=== PATIENT | female | born 1955 | race Caucasian/White ===

== ENCOUNTER 2016-04-08 12:04 | Inpatient (IN) | payer OTHER ==
[~2016-04-08] VITALS: Ht 165.1 cm; Wt 101.4 kg
[~2016-04-08 12:04] MED LIST: BUPR-93 PO; CYAN500 PO; DICL2100G TP; FLUT16H NASAL; FOLI1 PO; LEVO125 PO; ONDA4 PO; PANT40TA25 PO; RIFAX550 PO; THIA100 PO; VITAD50000 PO
[2016-04-08 12:21] LABS: GLUCOSE,POINT OF CARE 134 MG/DL (70-110)
[2016-04-08 12:54] LABS: BASOPHILS # (AUTO) 0.01 K/uL (0.00-0.20); BASOPHILS % (AUTO) 0.1 % (0.0-2.0); EOSINOPHILS # (AUTO) 0.19 K/uL (0.00-0.70); EOSINOPHILS % (AUTO) 1.86 % (1.0-6.0); HEMATOCRIT 32.3 % (36-46); LYMPHOCYTES # (AUTO) 1.2 K/uL (1.0-4.8); LYMPHOCYTES % (AUTO) 12.2 % (22.0-44.0); MEAN CORPUSCULAR HEMOGLOBIN 36.9 pg (26.0-34.0); MEAN CORPUSCULAR HGB CONC 33.9 G/dL (31.0-37.0); MEAN CORPUSCULAR VOLUME 109 fL (80-100); MONOCYTES # (AUTO) 1.4 K/uL (0.1-1.0); MONOCYTES % (AUTO) 13.8 % (2.0-9.0); NEUTROPHILS # (AUTO) 7.2 K/uL (1.8-7.7); RED BLOOD CELL COUNT(AUTO) 2.98 MIL/uL (4.00-5.20); RED CELL DISTRIBUTION WIDTH 17.9 % (11.5-14.5); WHITE BLOOD COUNT (AUTO) 10.1 K/uL (4.5-11.0)
[2016-04-08 12:58] LABS: CALCIUM, TOTAL 7.9 mg/dL (8.8-10.5); CREATININE 1.05 mg/dL (0.60-1.30); POTASSIUM 3.1 mmol/L (3.5-5.1)
[2016-04-08] MEDS ORDERED: HYDROmorphone 2 MG/ML SYRINGE IVP ONE (13:00)
[2016-04-08] MEDS ORDERED: ONDANSETRON HCL 4 MG/2 ML VIAL IVP ONE (13:00)
[2016-04-08 13:02] LABS: PLATELET COUNT (AUTO) 97 K/uL (150-450)
[2016-04-08 13:03] LABS: ALBUMIN 1.7 g/dL (3.4-5.0); BILIRUBIN,TOTAL 6.2 mg/dL (0.1-1.0); RBC MORPHOLOGY COMMENT ABNORMAL RBC MORPH; TOTAL PROTEIN, SERUM 6.7 g/dL (6.4-8.2)
[2016-04-08 13:06] LABS: INR 1.6 (0.9-1.1); PROTHROMBIN TIME 16.4 SEC (9.4-11.6)
[2016-04-08 14:23] LABS: APPEARANCE,URINE CLEAR (CLEAR); GLUCOSE, URINE (UA) NEGATIVE (NEGATIVE); KETONES,URINE NEGATIVE (NEGATIVE); LEUKOCYTE ESTERASE ,URINE NEGATIVE (NEGATIVE); OCCULT BLOOD,URINE NEGATIVE (NEGATIVE); PH,URINE 6.5 (5.0-8.0); PROTEIN,URINE NEGATIVE (NEGATIVE)
[2016-04-08 14:24] LABS: ADD UA MICROSCOPIC NO
[2016-04-08] MEDS ORDERED: BISACODYL 10 MG RECTAL RECTAL SUPPOSITORY PR PRN (15:15)
[2016-04-08] MEDS ORDERED: ZOLPIDEM TARTRATE 5 MG TABLET PO PRN (15:15)
[2016-04-08] MEDS ORDERED: MAGNESIUM HYDROXIDE SUSPENSION 30 ML UDCUP PO PRN (15:15)
[2016-04-08] MEDS ORDERED: ONDANSETRON HCL 4 MG/2 ML VIAL IVP PRN (15:15)
[2016-04-08] MEDS ORDERED: ACETAMINOPHEN 325 MG TABLET PO PRN (15:15)
[2016-04-08] MEDS: HEPARIN SODIUM,PORCINE 5,000 UNITS/ML VIAL SQ SCH (15:21)
[2016-04-08] MEDS ORDERED: BARIUM SULFATE 0.1% SUSPENSION 450 ML BOTTLE PO ONE (16:30)
[2016-04-08] MEDS ORDERED: SODIUM CHLORIDE 0.9% 100 ML ONE (17:56)
[2016-04-08] MEDS ORDERED: IOVERSOL 350 MG/ML 50 ML VIAL ONE (17:56)
[2016-04-08] MEDS ORDERED: IOVERSOL 350 MG/ML 100 ML VIAL ONE (17:56)
[2016-04-08 19:06] VITALS: BP 157/90
[2016-04-08 19:23] VITALS: BP 136/79
[2016-04-08] MEDS: BuPROPion HCL XL 150 MG ER TABLET PO SCH (19:32)
[2016-04-08] MEDS: RIFAXIMIN 550 MG TABLET PO SCH (19:32)
[2016-04-08] MEDS: OxyCODONE HCL/ACETAMINOPHEN 5-325 MG TABLET PO PRN (19:32)
[2016-04-08 23:23] VITALS: BP 146/78
[2016-04-09] MEDS: HEPARIN SODIUM,PORCINE 5,000 UNITS/ML VIAL SQ SCH ×4 (00:21→23:09)
[2016-04-09] MEDS: OxyCODONE HCL/ACETAMINOPHEN 5-325 MG TABLET PO PRN ×2 (00:21→08:51)
[2016-04-09 04:48] VITALS: BP 140/66
[2016-04-09] MEDS: LEVOTHYROXINE SODIUM 125 MCG TABLET PO SCH (05:51)
[2016-04-09 07:48] VITALS: BP 140/65
[2016-04-09] MEDS: RIFAXIMIN 550 MG TABLET PO SCH ×2 (08:50→20:37)
[2016-04-09] MEDS: PANTOPRAZOLE SODIUM 40 MG DR TABLET PO SCH (08:51)
[2016-04-09] MEDS: BuPROPion HCL XL 150 MG ER TABLET PO SCH ×2 (08:51→20:37)
[2016-04-09 11:15] VITALS: BP 132/76
[2016-04-09 16:10] VITALS: BP 139/69
[2016-04-09 19:14] VITALS: BP 130/72
[2016-04-09] MEDS ORDERED: POTASSIUM CHLORIDE 20 MEQ ER TABLET PO ONE (20:00)
[2016-04-09] MEDS: FUROSEMIDE 40 MG/4 ML VIAL IVP SCH (20:37)
[2016-04-09] MEDS ORDERED: MAG HYDROX/AL HYDROX/SIMETH ES 30 ML SUSPENSION UDCUP PO PRN (21:45)
[2016-04-09] MEDS: MORPHINE SULFATE 2 MG/ML SYRINGE IVP PRN (22:18)
[2016-04-09 23:50] VITALS: BP 135/72
[2016-04-10 04:21] VITALS: BP 128/68
[2016-04-10] MEDS: LEVOTHYROXINE SODIUM 125 MCG TABLET PO SCH (06:08)
[2016-04-10 06:55] LABS: BASOPHILS % (AUTO) 0.4 % (0.0-2.0); EOSINOPHILS % (AUTO) 1.2 % (1.0-6.0); HEMATOCRIT 31.2 % (36-46); HEMOGLOBIN 10.2 g/dL (12.0-16.0); LYMPHOCYTES # (AUTO) 1.2 K/uL (1.0-4.8); LYMPHOCYTES % (AUTO) 12.6 % (22.0-44.0); MEAN CORPUSCULAR HEMOGLOBIN 36.5 pg (26.0-34.0); MEAN CORPUSCULAR HGB CONC 32.8 G/dL (31.0-37.0); MEAN CORPUSCULAR VOLUME 111 fL (80-100); MONOCYTES # (AUTO) 1.5 K/uL (0.1-1.0); MONOCYTES % (AUTO) 15.4 % (2.0-9.0); NEUTROPHILS # (AUTO) 6.8 K/uL (1.8-7.7); NEUTROPHILS % (AUTO) 70.4 % (40.0-70.0); PLATELET COUNT (AUTO) 91 K/uL (150-450); RED CELL DISTRIBUTION WIDTH 17.6 % (11.5-14.5); WHITE BLOOD COUNT (AUTO) 9.7 K/uL (4.5-11.0)
[2016-04-10 07:15] LABS: ALBUMIN 1.7 g/dL (3.4-5.0); BILIRUBIN,TOTAL 5.4 mg/dL (0.1-1.0); CALCIUM, TOTAL 7.9 mg/dL (8.8-10.5); CREATININE 1.13 mg/dL (0.60-1.30); POTASSIUM 3.5 mmol/L (3.5-5.1); TOTAL PROTEIN, SERUM 6.6 g/dL (6.4-8.2)
[2016-04-10 07:48] VITALS: BP 134/70
[2016-04-10] MEDS: PANTOPRAZOLE SODIUM 40 MG DR TABLET PO SCH (08:30)
[2016-04-10] MEDS: HEPARIN SODIUM,PORCINE 5,000 UNITS/ML VIAL SQ SCH ×3 (08:37→22:56)
[2016-04-10] MEDS: BuPROPion HCL XL 150 MG ER TABLET PO SCH ×2 (08:37→23:53)
[2016-04-10] MEDS: FUROSEMIDE 40 MG/4 ML VIAL IVP SCH ×2 (08:37→20:33)
[2016-04-10] MEDS: RIFAXIMIN 550 MG TABLET PO SCH ×2 (08:38→20:33)
[2016-04-10] MEDS ORDERED: PHYTONADIONE 10 MG/1 ML AMP IM ONE ×2 (10:45→21:45)
[2016-04-10 11:40] VITALS: BP 129/80
[2016-04-10 15:47] VITALS: BP 132/75
[2016-04-10] MEDS: MORPHINE SULFATE 2 MG/ML SYRINGE IVP PRN (20:33)
[2016-04-10 20:36] VITALS: BP 133/69
[2016-04-10] MEDS: OxyCODONE HCL/ACETAMINOPHEN 5-325 MG TABLET PO PRN (23:54)
[2016-04-11] VITALS: BP 136/72
[2016-04-11 04:03] VITALS: BP 141/77
[2016-04-11] MEDS: LEVOTHYROXINE SODIUM 125 MCG TABLET PO SCH (06:30)
[2016-04-11 07:13] LABS: BASOPHILS # (AUTO) 0.04 K/uL (0.00-0.20); BASOPHILS % (AUTO) 0.4 % (0.0-2.0); EOSINOPHILS # (AUTO) 0.09 K/uL (0.00-0.70); EOSINOPHILS % (AUTO) 0.96 % (1.0-6.0); HEMATOCRIT 31.3 % (36-46); HEMOGLOBIN 10.6 g/dL (12.0-16.0); LYMPHOCYTES # (AUTO) 1.3 K/uL (1.0-4.8); LYMPHOCYTES % (AUTO) 13.9 % (22.0-44.0); MEAN CORPUSCULAR HEMOGLOBIN 37.4 pg (26.0-34.0); MEAN CORPUSCULAR HGB CONC 33.8 G/dL (31.0-37.0); MEAN CORPUSCULAR VOLUME 111 fL (80-100); MONOCYTES # (AUTO) 1.3 K/uL (0.1-1.0); MONOCYTES % (AUTO) 14.5 % (2.0-9.0); NEUTROPHILS # (AUTO) 6.3 K/uL (1.8-7.7); NEUTROPHILS % (AUTO) 70.2 % (40.0-70.0); PLATELET COUNT (AUTO) 92 K/uL (150-450); RED BLOOD CELL COUNT(AUTO) 2.83 MIL/uL (4.00-5.20); RED CELL DISTRIBUTION WIDTH 17.9 % (11.5-14.5)
[2016-04-11 07:22] LABS: INR 1.6 (0.9-1.1); PROTHROMBIN TIME 16.6 SEC (9.4-11.6)
[2016-04-11] MEDS: MORPHINE SULFATE 2 MG/ML SYRINGE IVP PRN (07:36)
[2016-04-11 07:50] LABS: ALBUMIN 1.7 g/dL (3.4-5.0); BILIRUBIN,TOTAL 6.1 mg/dL (0.1-1.0); CREATININE 1.07 mg/dL (0.60-1.30); POTASSIUM 3.6 mmol/L (3.5-5.1); TOTAL PROTEIN, SERUM 6.5 g/dL (6.4-8.2)
[2016-04-11 07:58] VITALS: BP 117/65
[2016-04-11] MEDS: HEPARIN SODIUM,PORCINE 5,000 UNITS/ML VIAL SQ SCH (08:00)
[2016-04-11] MEDS: PANTOPRAZOLE SODIUM 40 MG DR TABLET PO SCH (10:45)
[2016-04-11] MEDS: BuPROPion HCL XL 150 MG ER TABLET PO SCH (10:45)
[2016-04-11] MEDS: RIFAXIMIN 550 MG TABLET PO SCH (10:45)
[2016-04-11] MEDS: FUROSEMIDE 40 MG/4 ML VIAL IVP SCH (10:45)
[2016-04-11 11:45] VITALS: BP 144/73
[2016-04-11 12:29] LABS: RBC MORPHOLOGY COMMENT ABNORMAL RBC MORPH
== END 2016-04-11 14:40 | disposition home or self-care (01) | DRG 432 ==
LOC: EMS 12:06 → 6N 16:57
PROVIDERS: ADMIT Hospitalist; ATTEND Hospitalist
PROC: 0W9G3ZZ Drainage of Peritoneal Cavity, Percutaneous Approach (ICD-10-PCS; principal; 2016-04-11)
DX: K74.60 Unspecified cirrhosis of liver (principal); E43 Unspecified severe protein-calorie malnutrition; R18.8 Other ascites; E87.1 Hypo-osmolality and hyponatremia; E80.6 Other disorders of bilirubin metabolism; E03.9 Hypothyroidism, unspecified; E87.6 Hypokalemia; B18.2 Chronic viral hepatitis C; D63.8 Anemia in other chronic diseases classified elsewhere; D69.6 Thrombocytopenia, unspecified; F03.90 Unspecified dementia, unspecified severity, without behavioral disturbance, psychotic disturbance, mood disturbance, and anxiety; H54.8 Legal blindness, as defined in USA; F31.9 Bipolar disorder, unspecified; I10 Essential (primary) hypertension; E11.42 Type 2 diabetes mellitus with diabetic polyneuropathy; I25.10 Atherosclerotic heart disease of native coronary artery without angina pectoris; K58.9 Irritable bowel syndrome, unspecified; K72.90 Hepatic failure, unspecified without coma; Z88.6 Allergy status to analgesic agent; Z88.5 Allergy status to narcotic agent; Z88.8 Allergy status to other drugs, medicaments and biological substances; Z79.899 Other long term (current) drug therapy; Z90.49 Acquired absence of other specified parts of digestive tract; Z90.710 Acquired absence of both cervix and uterus; Z98.890 Other specified postprocedural states; Z98.51 Tubal ligation status; Z68.37 Body mass index [BMI] 37.0-37.9, adult
CPT/HCPCS: 49081; 74177; 76700; 76942; 82962; 87081; 96374; 96375; 96376; 99285; J1170; J1644; J1940; J2270; J2405; J3430; J7050

== ENCOUNTER 2016-05-20 20:59 | Emergency (ER) | payer OTHER ==
[~2016-05-20] VITALS: Ht 165.1 cm; Wt 88.6 kg
[2016-05-20 21:07] VITALS: BP 145/78
[2016-05-20 21:17] LABS: GLUCOSE,POINT OF CARE 131 MG/DL (70-110)
[2016-05-20] MEDS ORDERED: POTA-79 PO (21:35)
[2016-05-20] MEDS ORDERED: LORA0.5T2 PO (21:35)
[2016-05-20] MEDS ORDERED: GI COCKTAIL PO (21:35)
[2016-05-20] MEDS ORDERED: MULT1TAB71 PO (21:35)
[2016-05-20] MEDS ORDERED: SPIR50 PO (21:35)
[2016-05-20] MEDS ORDERED: FURO40 PO (21:35)
[2016-05-20] MEDS ORDERED: MIRAUD PO (21:35)
[2016-05-20] MEDS ORDERED: TRAM50TA4 PO (21:35)
[2016-05-20 21:43] LABS: BASOPHILS # (AUTO) 0.05 K/uL (0.00-0.20); BASOPHILS % (AUTO) 0.9 % (0.0-2.0); EOSINOPHILS # (AUTO) 0.04 K/uL (0.00-0.70); EOSINOPHILS % (AUTO) 0.81 % (1.0-6.0); HEMATOCRIT 28.1 % (36-46); HEMOGLOBIN 9.6 g/dL (12.0-16.0); LYMPHOCYTES # (AUTO) 1.3 K/uL (1.0-4.8); LYMPHOCYTES % (AUTO) 24.2 % (22.0-44.0); MEAN CORPUSCULAR HEMOGLOBIN 38.6 pg (26.0-34.0); MEAN CORPUSCULAR HGB CONC 34.1 G/dL (31.0-37.0); MEAN CORPUSCULAR VOLUME 113 fL (80-100); MONOCYTES % (AUTO) 18.4 % (2.0-9.0); NEUTROPHILS % (AUTO) 55.7 % (40.0-70.0); RED BLOOD CELL COUNT(AUTO) 2.49 MIL/uL (4.00-5.20); RED CELL DISTRIBUTION WIDTH 16.8 % (11.5-14.5); WHITE BLOOD COUNT (AUTO) 5.4 K/uL (4.5-11.0)
[2016-05-20 21:59] LABS: ANION GAP 9 mmol/L (8-16); CALCIUM, TOTAL 7.2 mg/dL (8.8-10.5); CARBON DIOXIDE 29 mmol/L (22-29); CHLORIDE 101 mmol/L (98-107); CREATININE 0.94 mg/dL (0.60-1.30); GLOMERULAR FILTR. RATE CALC > 60 mL/min (>60); POTASSIUM 3.7 mmol/L (3.5-5.1); SODIUM SERUM 139 mmol/L (136-145); UREA NITROGEN, BLOOD 12 mg/dL (7-18)
[2016-05-20 22:00] LABS: ALANINE AMINOTRANSFERASE 29 U/L (12-78); ALBUMIN 2.2 g/dL (3.4-5.0); ASPARTATE AMINOTRANSFERASE 64 U/L (15-37); BILIRUBIN,TOTAL 6.1 mg/dL (0.1-1.0); TOTAL PROTEIN, SERUM 6.8 g/dL (6.4-8.2)
[2016-05-20 22:06] LABS: PLATELET COUNT (AUTO) 84 K/uL (150-450); RBC MORPHOLOGY COMMENT ABNORMAL RBC MORPH
== END 2016-05-21 02:55 | disposition left against medical advice (07) ==
LOC: EMS 21:03
DX: R18.8 Other ascites (principal); D69.6 Thrombocytopenia, unspecified; Z88.5 Allergy status to narcotic agent; Z88.6 Allergy status to analgesic agent
CPT/HCPCS: 82962; 93005; 99285